=== PATIENT | male | born 1930 ===

== ENCOUNTER → 2016-06-29 | Outpatient (CLI) | payer OTHER ==
[2016-06-29 13:49] LABS: BLOOD UREA NITROGEN 29 mg/dl (7-18); CALCIUM 8.4 mg/dl (8.5-10.1); CARBON DIOXIDE 29 mmol/L (21-32); CHLORIDE 104 mmol/L (98-107); CREATININE 0.97 mg/dl (0.60-1.40); GLUCOSE 94 mg/dl (70-99); POTASSIUM 3.6 mmol/L (3.5-5.1); SODIUM 141 mmol/L (136-145)
[2016-06-29 13:54] LABS: CHOLESTEROL 188 mg/dl (0-200); CHOLESTEROL/HDL RATIO 5.7; HDL CHOLESTEROL 33 mg/dl; LDL CHOLESTEROL CALCULATED 136 mg/dl; TRIGLYCERIDES 93 mg/dl (0-150); VERY LOW DENSITY LIPOPROT CALC 19 mg/dl
== END | disposition home or self-care (01) ==
LOC: C.LABMFLN 09:02
PROVIDERS: ATTEND Family Medicine
DX: R97.20 Elevated prostate specific antigen [PSA] (principal); E78.00 Pure hypercholesterolemia, unspecified; I10 Essential (primary) hypertension

== ENCOUNTER → 2017-01-26 | Outpatient (CLI) | payer OTHER ==
[2017-01-26 13:53] LABS: BLOOD UREA NITROGEN 27 mg/dl (7-18); BUN/CREATININE RATIO 26.7 (10-20); CARBON DIOXIDE 29 mmol/L (21-32); CHLORIDE 105 mmol/L (98-107); CHOLESTEROL 191 mg/dl (0-200); GLUCOSE 94 mg/dl (70-99); SODIUM 140 mmol/L (136-145)
[2017-01-26 13:57] LABS: HDL CHOLESTEROL 32 mg/dl; LDL CHOLESTEROL CALCULATED 128 mg/dl; TRIGLYCERIDES 153 mg/dl (0-150); VERY LOW DENSITY LIPOPROT CALC 31 mg/dl
== END | disposition home or self-care (01) ==
LOC: C.LABMFLN 06:54
PROVIDERS: ATTEND Family Medicine
DX: N40.0 Benign prostatic hyperplasia without lower urinary tract symptoms (principal); E78.00 Pure hypercholesterolemia, unspecified; I10 Essential (primary) hypertension; R97.20 Elevated prostate specific antigen [PSA]

== ENCOUNTER → 2017-12-18 | Outpatient (CLI) | payer OTHER ==
[2017-12-18 13:50] LABS: BLOOD UREA NITROGEN 33 mg/dl (7-18); CALCIUM 8.4 mg/dl (8.5-10.1); CARBON DIOXIDE 27 mmol/L (21-32); CHOLESTEROL 187 mg/dl (0-200); CREATININE 1.15 mg/dl (0.60-1.40); GLUCOSE 91 mg/dl (70-99); LDL CHOLESTEROL CALCULATED 126 mg/dl; POTASSIUM 3.8 mmol/L (3.5-5.1); SODIUM 140 mmol/L (136-145)
== END | disposition home or self-care (01) ==
LOC: C.LABMFLN 06:56
PROVIDERS: ATTEND Family Medicine
DX: R97.20 Elevated prostate specific antigen [PSA] (principal); E78.00 Pure hypercholesterolemia, unspecified; I10 Essential (primary) hypertension